=== PATIENT | male | born 1980 | race Caucasian/White ===

== ENCOUNTER 2023-11-30 23:51 | Emergency (ER) | payer OTHER, SELFPAY ==
[2023-11-30 23:53] VITALS: BP 126/90
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
[2023-12-01 01:40] VITALS: BMI 36.8
== END 2023-12-01 01:50 | disposition home or self-care (01) ==
LOC: EMR 23:51
PROVIDERS: EMERGENCY PHYSICIAN Emergency Medicine
DX: F23 Brief psychotic disorder (principal); F12.90 Cannabis use, unspecified, uncomplicated; Z87.891 Personal history of nicotine dependence
CPT/HCPCS: 99282